=== PATIENT | female | born 1955 | race American Indian/Alaskan Native ===

== ENCOUNTER 2018-01-26 11:50 | Outpatient (CLI) | payer OTHER ==
--- NOTE | 2018-01-27 09:00 | Mammography Report ---
BILATERAL DIGITAL SCREENING MAMMOGRAM WITH CAD:01/26/18 11:15:00 CLINICAL: Baseline screening. FINDINGS: The breasts are heterogeneously dense, which may obscure small masses. Bilateral parenchymal asymmetries require additional imaging. A group of left upper outer calcifications also requires additional imaging. IMPRESSION: Bilateral asymmetries and left calcifications requiring further workup. BI-RADS CATEGORY: 0 -- Needs Additional Imaging RECOMMENDATION: Recall for bilateral true lateral and spot magnification views and bilateral breast ultrasound if needed. ACR BI-RADS MAMMOGRAPHIC CODES: 0 = Needs additional imaging evaluation; 1 = Negative; 2 = Benign; 3 = Probably benign; 4 = Suspicious; 5 = Malignant; 6 = Known biopsy-proven malignancy COMMENT: 1. Dense breast tissue, i.e., adenosis, fibrocystic changes, etc., may obscure an underlying neoplasm. 2. Approximately 10% of cancers are not detected with mammography. 3. A negative mammography report should not delay biopsy if a clinically suspicious mass is present.
== END 2018-01-26 11:51 | disposition home or self-care (01) ==
LOC: SPVWC 11:50
PROVIDERS: ATTEND Internal Medicine
DX: Z12.31 Encounter for screening mammogram for malignant neoplasm of breast (principal)
CPT/HCPCS: 77067

== ENCOUNTER 2018-02-14 10:07 | Outpatient (CLI) | payer OTHER ==
--- NOTE | 2018-02-14 13:37 | Mammography Report ---
BILATERAL DIGITAL DIAGNOSTIC MAMMOGRAM and BILATERAL BREAST ULTRASOUND: 02/14/18 10:07:00 CLINICAL: Recalled for bilateral asymmetries. COMPARISON:01/26/18 screening FINDINGS: Spot magnification views and LM views of the right breast were performed. A right partially circumscribed asymmetry persists in the inferior breast.Lateralmedial and spot magnification MLO and CC views plus rolled CC views of the left breast were performed. Upper-outer calcifications of the left breast have benign morphology. An inner asymmetry demonstrates satisfactory effacement with spot magnification on the CC view but a second retroareolar asymmetry is apparent. It persists on a rolled medial view but not on a rolled lateral view. There is no correlation for this asymmetry on lateral or MLO views. Ultrasound of the right breast demonstrated a benign cyst at 6 o'clock 4 cm from the nipple measuring 8 x 5 x 6 mm. It correlates with the mammographic density. Ultrasound of the left breast (including all four quadrants and the retroareolar area) was performed and demonstrated normal fibroglandular and fatty structures except for a single benign retroareolar cyst at 3 o'clock measuring 3 x 2 x 3 mm. No solid mass or shadowing to correlate with the mammographic asymmetry. IMPRESSION: 1. A probably benign left mammographic asymmetry identified only on CC views with a negative ultrasound. 2. Benign right breast cyst at 6 o'clock. 3. Benign left upper outer calcifications. BI-RADS CATEGORY: 3 - - Probably Benign RECOMMENDATION: Six month followup left mammogram and ultrasound if needed to reevaluate the mammographic asymmetry identified only on the CC view. ACR BI-RADS MAMMOGRAPHIC CODES: 0 = Needs additional imaging evaluation; 1 = Negative; 2 = Benign; 3 = Probably benign; 4 = Suspicious; 5 = Malignant; 6 = Known biopsy-proven malignancy COMMENT: 1. Dense breast tissue, i.e., adenosis, fibrocystic changes, etc., may obscure an underlying neoplasm. 2. Approximately 10% of cancers are not detected with mammography. 3. A negative mammography report should not delay biopsy if a clinically suspicious mass is present. COMMENT: Patient follow-up letters are generated via our [id number] application.
== END 2018-02-14 10:08 | disposition home or self-care (01) ==
LOC: SPVWC 10:07
PROVIDERS: ATTEND Internal Medicine
DX: N60.01 Solitary cyst of right breast (principal); R92.2 Inconclusive mammogram
CPT/HCPCS: 77066

== ENCOUNTER 2021-11-17 13:54 | Outpatient (CLI) | payer MEDICARE, OTHER ==
[2021-11-17 14:33] LABS: Basophils # (Auto) 0.1 K/mm3 (0.0-0.1); Basophils % (Auto) 1.2 % (0.0-1.8); Eosinophils # (Auto) 0.2 K/mm3 (0.0-0.4); Eosinophils % (Auto) 4.8 % (0.0-4.3); Hemoglobin 11.5 gm/dl (10.1-14.3); Lymphocytes # (Auto) 1.4 K/mm3 (1.2-5.4); Lymphocytes % (Auto) 32.2 % (13.4-35.0); Mean Corpuscular HGB Conc 33 % (30-34); Mean Corpuscular Volume 81 fl (79-97); Monocytes # (Auto) 0.7 K/mm3 (0.0-0.8); Monocytes % (Auto) 15.7 % (0.0-7.3); Platelet Count 244 K/mm3 (140-440); Red Blood Count 4.33 M/mm3 (3.65-5.03); Red Cell Distribution Width 15.1 % (13.2-15.2)
[2021-11-17 14:55] LABS: Alanine Aminotransferase 14 units/L (7-56); Albumin 4.4 g/dL (3.9-5); BUN/Creatinine Ratio 15; Blood Urea Nitrogen 12 mg/dL (7-17); Calcium 9.9 mg/dL (8.4-10.2); Hemolysis Index 15
== END 2021-11-17 13:55 | disposition home or self-care (01) ==
LOC: LAB 13:54
PROVIDERS: ATTEND Nurse Practitioner Gerontology
DX: I10 Essential (primary) hypertension (principal)
CPT/HCPCS: 36415; 80053; 82306; 85025